=== PATIENT | male | born 1965 | race American Indian/Alaskan Native ===

== ENCOUNTER 2019-08-29 12:34 | Emergency (ER) | payer OTHER ==
[2019-08-29 12:50] VITALS: BP 177/112
[2019-08-29] MEDS ORDERED: HYDROcodone/ACETAMINOPHEN 7.5-325MG TAB PO ONE (13:05)
--- NOTE | 2019-08-29 13:09 | Emergency Department Report ---
ED Lower Extremity HPI - General Chief Complaint: Extremity Injury, Lower Stated Complaint: LT TOE HURT Time Seen by Provider: 08/29/19 13:04 Source: patient Mode of arrival: Ambulatory Limitations: No Limitations - History of Present Illness Initial Comments: 53-year-old -[place] male presents to the emergency room in acute distress for left great toe injury that happened on . Patient states that he stepped off a [employer] truck and injured his foot. Patient states that the pain is worse with weightbearing and better with rest. Patient states that he is taken Aleve last dose today at 1012. Patient reports he is also soaked his foot in Epson salt. Patient reports no past medical history currently takes no medications on a daily basis and has no primary care provider. Patient reports he has no known drug allergies. Patient reports he arrived here from a lot from his fiance. Complaint: foot injury Onset/Timin -: days(s) Type of Injury: unknown Place: work Severity scale (0 -10): 8 Worsens With: weight bearing, movement, palpation Associated Symptoms: able to partially bear weight Treatments Prior to Arrival: NSAIDS (1012 today) - Related Data Previous Rx's Medication Instructions Recorded Last Taken Type Colchicine 0.6 mg PO ONCE #1 capsule 08/29/19 Unknown Rx Ibuprofen [Motrin 800 MG tab] 800 mg PO Q8HR PRN #30 tablet 08/29/19 Unknown Rx Allergies Allergy/AdvReac Type Severity Reaction Status Date / Time No Known Allergies Allergy Unverified 08/29/19 12:46 ED Review of Systems ROS: Stated complaint: LT TOE HURT Other details as noted in HPI Comment: All other systems reviewed and negative ED Past Medical Hx - Past Medical History Previous Medical History?: No - Surgical History Past Surgical History?: No - Social History Smoking Status: Current Some Day Smoker Substance Use Type: None - Medications Home Medications: Home Medications Medication Instructions Recorded Confirmed Last Taken Type Colchicine 0.6 mg PO ONCE #1 capsule 08/29/19 Unknown Rx Ibuprofen [Motrin 800 MG tab] 800 mg PO Q8HR PRN #30 tablet 08/29/19 Unknown Rx ED Physical Exam - General Limitations: No Limitations General appearance: alert, in distress - Head Head exam: Present: atraumatic, normocephalic - Eye Eye exam: Present: normal appearance - ENT ENT exam: Present: mucous membranes moist - Expanded Lower Extremity Exam Left Knee exam: Present: normal inspection Lower Leg exam: Present: normal inspection Ankle exam: Present: normal inspection Foot/Toe exam: Present: tenderness, swelling, erythema Neuro vascular tendon exam: Present: no vascular compromise - Neurological Exam Neurological exam: Present: alert, oriented X3 - Psychiatric Psychiatric exam: Present: normal affect, normal mood - Skin Skin exam: Present: warm, dry, intact, normal color. Absent: rash ED Course Vital Signs 08/29/19 12:47 Temperature 98.6 F Pulse Rate 91 H Respiratory 14 Rate Blood Pressure 177/112 O2 Sat by Pulse 98 Oximetry ED Lower Extremity MDM - Radiology Data Radiology results: report reviewed Print Report Referring Physician:MILAN TOPatient Name:ANGELA TORRESPatient ID:[id number] of :[id number]:MaleAccession:[id number] Date:1461-80-58Cycasc Status:Finalized Findings [facility] [address] [place] [address] XRay Report Signed Patient: ANGELA TORRES MR#: [id number] : 1965 Acct:[id number] Age/Sex: 53 / M ADM Date: 08/29/19 Loc: ED Attending Dr: Ordering Physician: ADORE CONTRERAS Date of Service: 08/29/19 Procedure(s): XR foot 3+V LT Accession Number(s): [id number] cc: ADORE CONTRERAS Fluoro Time In Minutes: Left foot, 3 views INDICATION: Pain following injury 3 days ago FINDINGS: There are slight to moderate degenerative changes at the first metatarsal-phalangeal joint. The remaining joints are intact. There is no fracture or dislocation. No foreign body is seen. No significant abnormality. Signer Name: Arthur Barnes MD Signed: 08/29/2019 1:36 PM Workstation Name: [id number] Transcribed By: LM Dictated By: Arthur Barnes MD Electronically Authenticated By: Arthur Barnes MD Signed Date/Time: 08/29/19 133 DD/ TD/TT: - Medical Decision Making 53-year-old -[place] male presents to the emergency room in acute distress for left great toe injury that happened on . Patient states that he stepped off a [employer] truck and injured his foot. Patient states that the pain is worse with weightbearing and better with rest. Patient states that he is taken Aleve last dose today at 1012. Patient reports he is also soaked his foot in Epson salt. Patient reports no past medical history currently takes no medications on a daily basis and has no primary care provider. Patient reports he has no known drug allergies. Patient reports he arrived here from a lot from his fiance. Lilburn 7.5 mg p.o. x-ray of left foot 2 view. X-rays negative for any dislocation or fractures. Patient be treated for gout. Patient be given colchicine 1.2 mg p.o. Toradol 30 mg IM patient has been given Lilburn 7.5 mg. Critical care attestation.: If time is entered above; I have spent that time in minutes in the direct care of this critically ill patient, excluding procedure time. ED Disposition Clinical Impression: Elevated blood pressure reading without diagnosis of hypertension, Gout of big toe Disposition: - TO HOME OR SELFCARE Is pt being admited?: No Does the pt Need Aspirin: No Condition: Stable Instructions: Acute Gouty Arthritis (ED), Hypertension (ED), Low Sodium Diet (ED), DASH Eating Plan (ED) Additional Instructions: Take pain medication as prescribed. Increase your fluid intake avoid alcohol use, red meat seafood. Please have your blood pressure re-checked in 1 week, follow-up with a primary care provider I have listed 1 below for your convenience. Prescriptions: Colchicine 0.6 mg PO ONCE #1 capsule Ibuprofen [Motrin 800 MG tab] 800 mg PO Q8HR PRN #30 tablet PRN Reason: Pain , Severe (7-10) Referrals: [facility] ALEXIS MD [Staff Physician] - 3-5 Days
--- NOTE | 2019-08-29 13:40 | XRay Report ---
Left foot, 3 views INDICATION: Pain following injury 3 days ago FINDINGS: There are slight to moderate degenerative changes at the first metatarsal-phalangeal joint. The remaining joints are intact. There is no fracture or dislocation. No foreign body is seen. No si gnificant abnormality. Signer Name: Arthur Barnes MD Signed: 08/29/2019 1:36 PM Workstation Name: [id number]
[2019-08-29] MEDS ORDERED: COLCHICINE 0.6 MG CAP PO ONE (13:44)
[2019-08-29] MEDS ORDERED: KETOROLAC 30 MG/1 ML INJ IM ONE (13:44)
[2019-08-29] MEDS ORDERED: IBUPROFEN 800 MG TAB PO ONE (13:49)
== END 2019-08-29 14:08 | disposition home or self-care (01) ==
LOC: ED 12:34
DX: S99.922A Unspecified injury of left foot, initial encounter (principal); M10.9 Gout, unspecified; R03.0 Elevated blood-pressure reading, without diagnosis of hypertension; F17.200 Nicotine dependence, unspecified, uncomplicated; X58.XXXA Exposure to other specified factors, initial encounter; Y93.89 Activity, other specified; Y92.89 Other specified places as the place of occurrence of the external cause; Y99.8 Other external cause status
CPT/HCPCS: 99283